=== PATIENT | male | born 1975 | race Caucasian/White ===

== ENCOUNTER 2023-12-29 07:53 | Day surgery (SDC) | payer OTHER ==
[~2023-12-29] VITALS: Ht 180.3 cm; Wt 84.4 kg
[~2023-12-29 07:53] MED LIST: LEVOTHYROXINE50 MC9 PO; VITAMIN D325 MC3 PO
[2023-12-29] MEDS ORDERED: Lactated Ringer's 1,000 ML IV ONE ×2 (08:56→09:13)
[2023-12-29] MEDS ORDERED: propofoL 50 ML IV ONE ×2 (09:13→09:55)
[2023-12-29] MEDS ORDERED: NS 500 ML IV ONE (10:22)
--- NOTE | 2023-12-29 10:49 | NUR ---
12/29/23 1049 Della Ashford INJECTED 10ML IN POLYP
== END 2023-12-29 11:15 | disposition home or self-care (01) ==
LOC: ORSCSDS 07:53
PROVIDERS: Internal Medicine Gastroenterology
PROC: 0DBK8ZX Excision of Ascending Colon, Via Natural or Artificial Opening Endoscopic, Diagnostic (ICD-10-PCS; principal; 2023-12-29 09:30)
PROC: 0DBL8ZX Excision of Transverse Colon, Via Natural or Artificial Opening Endoscopic, Diagnostic (ICD-10-PCS; principal; 2023-12-29 09:30)
PROC: 0DBN8ZX Excision of Sigmoid Colon, Via Natural or Artificial Opening Endoscopic, Diagnostic (ICD-10-PCS; principal; 2023-12-29 09:30)
PROC: 0DBP8ZX Excision of Rectum, Via Natural or Artificial Opening Endoscopic, Diagnostic (ICD-10-PCS; principal; 2023-12-29 09:30)
DX: Z12.11 Encounter for screening for malignant neoplasm of colon (principal); Z80.0 Family history of malignant neoplasm of digestive organs; D12.3 Benign neoplasm of transverse colon; D12.2 Benign neoplasm of ascending colon; D12.5 Benign neoplasm of sigmoid colon; K62.1 Rectal polyp; Z79.899 Other long term (current) drug therapy
CPT/HCPCS: 88305; J2704; J7040; J7120

== ENCOUNTER 2025-03-07 07:05 | Day surgery (SDC) | payer OTHER ==
[~2025-03-07] VITALS: Ht 182.9 cm; Wt 98.7 kg
[2025-03-07] MEDS ORDERED: Lactated Ringer's 1,000 ML IV ONE ×2 (08:11→08:31)
[2025-03-07] MEDS ORDERED: propofoL 50 ML IV ONE (08:31)
== END 2025-03-07 09:25 | disposition home or self-care (01) ==
LOC: ORSCSDS 07:05
PROVIDERS: Internal Medicine Gastroenterology
PROC: 0DBP8ZX Excision of Rectum, Via Natural or Artificial Opening Endoscopic, Diagnostic (ICD-10-PCS; principal; 2025-03-07 08:30)
PROC: 0DBK8ZX Excision of Ascending Colon, Via Natural or Artificial Opening Endoscopic, Diagnostic (ICD-10-PCS; principal; 2025-03-07 08:30)
DX: Z12.11 Encounter for screening for malignant neoplasm of colon (principal); Z86.0100 Personal history of colon polyps, unspecified; Z80.0 Family history of malignant neoplasm of digestive organs; Z83.719 Family history of colon polyps, unspecified; D12.2 Benign neoplasm of ascending colon; K62.1 Rectal polyp; Z79.899 Other long term (current) drug therapy
CPT/HCPCS: 88305; J2704; J7120

== ENCOUNTER 2025-10-31 11:57 | Emergency (ER) | payer OTHER ==
[~2025-10-31] VITALS: Ht 180.3 cm; Wt 102.1 kg
[2025-10-31 12:37] LABS: BASOPHILS ABSOLUTE AUTO 0.06 K/mm3 (0.00-0.23); BASOPHILS PERCENT AUTO 1 % (0-2); EOSINOPHILS ABSOLUTE AUTO 0.07 K/mm3 (0.00-0.68); EOSINOPHILS PERCENT AUTO 1 % (0-6); Hematocrit 52.7 % (37.0-53.0); Hemoglobin 18.1 g/dL (13.5-17.5); IMMATURE GRAN ABSOLUTE AUTO 0.06 K/mm3 (0.00-0.10); IMMATURE GRAN PERCENT AUTO 1 % (0-1); LYMPHOCYTES ABSOLUTE AUTO 1.46 K/mm3 (0.84-5.20); LYMPHOCYTES PERCENT AUTO 12 % (21-46); MONOCYTES ABSOLUTE AUTO 0.89 K/mm3 (0.16-1.47); MONOCYTES PERCENT AUTO 8 % (4-13); Mean Corpuscular HGB Conc 34.3 g/dL (31.5-36.5); Mean Corpuscular Volume 90 fL (80-100); NEUTROPHILS ABSOLUTE AUTO 9.21 K/mm3 (1.96-9.15); NEUTROPHILS PERCENT AUTO 78 % (41-73); NRBC ABSOLUTE 0.00 K/mm3 (0.00-0.02); NRBC Auto 0.0 /100 WBC (0.0-0.2); Platelet Count 259 K/mm3 (150-400); RDW Coefficient Variation 13.1 % (11.7-14.2); RDW Standard Deviation 43.0 fL (35.1-46.3)
[2025-10-31 13:04] LABS: Alanine Aminotransfer (ALT/SGP 53.0 U/L (12-78); Albumin, Blood 3.6 g/dL (3.4-5.0); Albumin/Globulin Ratio 0.9 (0.8-1.8); Anion Gap 8.0 mmol/L (3-11); Aspartate Aminotrans (AST/SGOT 63.0 U/L (12-37); Bilirubin, Total 0.8 mg/dL (0.1-1.0); Blood Urea Nitrogen 15.0 mg/dL (8-24); CO2, Blood 25.0 mmol/L (21-32); Calcium, Blood 8.7 mg/dL (8.5-10.1); Chloride, Blood 105.0 mmol/L (98-108); Creatinine, Blood 1.15 mg/dL (0.60-1.20); Globulin, Blood 4.2 g/dL (2.2-4.0); Glucose, Blood 112.0 mg/dL (70-99); Potassium, Blood 3.8 mmol/L (3.5-5.5); Sodium, Blood 134.0 mmol/L (136-145); Total Protein, Blood 7.8 g/dL (6.4-8.2)
== END 2025-10-31 16:29 | disposition home or self-care (01) ==
LOC: ER 11:57
PROVIDERS: Physician Assistant
DX: R00.2 Palpitations (principal); R07.89 Other chest pain; R06.02 Shortness of breath; Z79.899 Other long term (current) drug therapy
CPT/HCPCS: 71046; 80053; 84484; 85025; 85379; 93005; 93010; 93246; 99285-25